=== PATIENT | female | born 1990 | race Caucasian/White ===

== ENCOUNTER 2017-02-27 21:30 | Observation (INO) | payer MEDICAID, SELFPAY ==
[~2017-02-27] VITALS: Ht 160 cm; Wt 117.9 kg
[~2017-02-27 21:30] MED LIST: FUROSEMIDE 20 MG/2 ML VIAL IVP SCH
[2017-02-27] MEDS ORDERED: LACTATED RINGERS 1,000 ML IV SCH (22:00)
[2017-02-27] MEDS ORDERED: AMPICILLIN 2,000 MG in NACL 0.9% 100 ML IV SCH (22:00)
[2017-02-27] MEDS ORDERED: ACETAMINOPHEN 325 MG TAB PO PRN (22:00)
[2017-02-27] MEDS ORDERED: ACETAMINOPHEN 325 MG TAB ONE (22:15)
[2017-02-27] MEDS ORDERED: AMPICILLIN 2,000 MG VIAL ONE (22:27)
[2017-02-27] MEDS ORDERED: LACTATED RINGERS 1,000 ML IV ONE (23:20)
[2017-02-28] MEDS ORDERED: AMPICILLIN 2,000 MG in NACL 0.9% 100 ML IV SCH ×2
[2017-02-28] MEDS ORDERED: guaiFENesin 20 MG/ML UDC PO PRN ×2 (00:45→05:20)
[2017-02-28 00:57] VITALS: BP 119/69
[2017-02-28] MEDS ORDERED: LACTATED RINGERS 1,000 ML IV SCH (01:00)
[2017-02-28] MEDS ORDERED: AMPICILLIN 1,000 MG VIAL ONE ×2 (02:07→10:06)
[2017-02-28] MEDS ORDERED: AMPICILLIN 2,000 MG VIAL ONE ×2 (05:59→14:00)
--- NOTE | 2017-02-28 08:58 | NUR ---
PATIENT HAS BEEN SCREENED AND CATEGORIZED LOW NUTRITION RISK. PATIENT WILL BE SEEN WITHIN 7 DAYS OF ADMISSION. 03/06/2017 MARGUERITE CUELLO MBA, RD
== END 2017-02-28 15:32 | disposition home or self-care (01) ==
LOC: MLD 21:30 → MFCC 02-28 08:07
PROVIDERS: ADMIT Obstetrics & Gynecology; ATTEND Obstetrics & Gynecology
DX: O26.892 Other specified pregnancy related conditions, second trimester (principal); R50.9 Fever, unspecified; R10.9 Unspecified abdominal pain; Z3A.23 23 weeks gestation of pregnancy
CPT/HCPCS: 96361; 96365; 96366; G0378; J0290; J7120

== ENCOUNTER 2018-06-08 18:39 | Emergency (ER) | payer MEDICAID ==
[~2018-06-08] VITALS: Ht 157.5 cm; Wt 118.8 kg
[2018-06-08 18:48] VITALS: BP 134/73
--- NOTE | 2018-06-08 18:51 | NUR ---
PT PORVIDED URINE, AMB TO LOBBY ALONE; NOT IN DISTRESS
--- NOTE | 2018-06-08 19:03 | NUR ---
PT AMBULATED TO ER BED 04. UNABLE TO PROVIDE A URINE AT THIS TIME.
--- NOTE | 2018-06-08 19:15 | NUR ---
BIB SELF WITH C/O OF WORSENING RIGHT KNEE PAIN X 1 WEEK S/P SLIP AND FALL. SWELLING AND REDNESS NOTED. NO OTHER SYMPTOMS REPORTED AT THIS TIME.
[2018-06-08] MEDS ORDERED: KETOROLAC 30 MG/ML VIAL IM ONE (19:55)
[2018-06-08 20:17] VITALS: BP 134/73
--- NOTE | 2018-06-08 20:17 | NUR ---
Patient discharged with v/s stable. Written and verbal after care instructions given and explained. Patient alert, oriented and verbalized understanding of instructions. Ambulatory with crutches . All questions addressed prior to discharge. ID band removed. Patient advised to follow up with PMD. Rx of Naprosyn given. Patient educated on indication of medication including possible reaction and side effects. Opportunity to ask questions provided and answered.
== END 2018-06-08 20:17 | disposition home or self-care (01) ==
LOC: MED 18:39
DX: S83.91XA Sprain of unspecified site of right knee, initial encounter (principal); W23.0XXA Caught, crushed, jammed, or pinched between moving objects, initial encounter; Y93.89 Activity, other specified; Y92.89 Other specified places as the place of occurrence of the external cause; Y99.8 Other external cause status
CPT/HCPCS: 73562; 96372; 99283; J1885; Q0092

== ENCOUNTER 2019-04-30 18:19 | Emergency (ER) | payer MEDICAID ==
[~2019-04-30] VITALS: Ht 157.5 cm; Wt 112.0 kg
[2019-04-30 18:33] VITALS: BP 157/85
--- NOTE | 2019-04-30 18:36 | NUR ---
WAIT AT LOBBY HANDED ON URINE CUP
--- NOTE | 2019-04-30 19:30 | NUR ---
PT AMBULATED TO BED 03
--- NOTE | 2019-04-30 20:55 | NUR ---
29 YEAR OLD FEMALE COMPLAINS OF VAGINAL BLEEDING X 3 WEEKS. PATIENT STATES PAIN WOULD BE ON/OFF 6/10 CRAMPING SENSATION. PATIENT STATES CHANGES 1 PAD EACH DAY. PATIENT AOX4, BREATHING EVEN AND UNLABORED, SKIN WARM AND DRY. BED IN LOWEST POSITION, LOCKED, BED RAIL UPX1. PMH - DENIES ALLERGIES - NKA
[2019-04-30 21:17] LABS: BASOPHILS # (AUTO) 0.1 K/uL (0.00-0.22); BASOPHILS % (AUTO) 0.6 % (0.0-2.0); EOSINOPHILS # (AUTO) 0.2 K/uL (0-0.4); EOSINOPHILS % (AUTO) 1.7 % (0.0-4.0); HEMATOCRIT 35.5 % (36-48); HEMOGLOBIN 10.9 g/dL (12.0-16.0); LYMPHOCYTES % (AUTO) 29.4 % (20.5-51.1); MEAN CORPUSCULAR HEMOGLOBIN 22 pg (27-31); MEAN CORPUSCULAR HGB CONC 31 g/dL (33-37); MEAN CORPUSCULAR VOLUME 70.1 fL (80-94); MONOCYTES # (AUTO) 0.6 K/uL (0.8-1.0); MONOCYTES % (AUTO) 4.4 % (1.7-9.3); NEUTROPHILS # (AUTO) 8.8 K/uL (1.8-7.7); NEUTROPHILS % (AUTO) 63.9 % (42.2-75.2); PLATELET COUNT (AUTO) 299 K/uL (140-450); RED BLOOD CELL COUNT(AUTO) 5.06 MIL/uL (4.20-5.40); RED CELL DISTRIBUTION WIDTH 15.5 % (11.6-13.7); WHITE BLOOD COUNT (AUTO) 13.8 K/uL (4.8-10.8)
[2019-04-30 22:06] VITALS: BP 138/77
--- NOTE | 2019-04-30 22:06 | NUR ---
Patient discharged with v/s stable. Pt states pain relief at this time. Written and verbal after care instructions given and explained. Patient verbalized understanding. Ambulatory with steady gait. All questions addressed prior to discharge. Advised to follow up with PMD.
--- NOTE | 2019-04-30 22:11 | NUR ---
Cedric collins in [facility] - 05/01/19 at 0318 by MEDJJ PATIENT ALERT AND AWAKE, BREATHING EVEN AND UNLABORED.
== END 2019-04-30 22:06 | disposition home or self-care (01) ==
LOC: MED 18:19
DX: N93.9 Abnormal uterine and vaginal bleeding, unspecified (principal)
CPT/HCPCS: 36415; 81002; 81025; 85025; 99283

== ENCOUNTER 2020-03-31 18:10 | Emergency (ER) | payer MEDICAID ==
[~2020-03-31] VITALS: Ht 157.5 cm; Wt 122.5 kg
[2020-03-31 18:17] VITALS: BP 126/73
--- NOTE | 2020-03-31 18:24 | NUR ---
Patient ambulated to bed 7. RN evaluating patient at bedside.
--- NOTE | 2020-03-31 19:13 | NUR ---
hand-off report givento Milton RN for continuation of nursing care
--- NOTE | 2020-03-31 19:14 | NUR ---
RECEIVED TRANSFER OF CARE REPORT FROM GALO HOLT FOR CONTINUATION OF CARE.
--- NOTE | 2020-03-31 19:30 | NUR ---
30 YR OLD FEMALE PRESENTED TO THE ER WITH CHIEF COMPLAINT OF EPIGASTRIC PAIN. PATIENT STATES SUDDEN ONSET, NON-RADIATING 7/10 EPIGASTRIC PAIN. PATIENT EPIGASTRIC PAIN STARTED 1AM THIS MORNING. PATIENT STATES NO OTHER MEDICAL COMPLAINTS. BED LOCKED IN LOWEST POSITION WITH 1 SIDE RAIL UP AND CALL LIGHT WITHIN REACH. WILL CONTINUE TO MONITOR. HISTORY- NONE ALLERGIES- NONE
--- NOTE | 2020-03-31 19:38 | NUR ---
PATIENT TAKEN TO RADIOLOGY VIA WHEELCHAIR.
[2020-03-31] MEDS: PANTOPRAZOLE 40 MG TABEC PO ONE (20:03)
[2020-03-31] MEDS: DICYCLOMINE HCL LIQUID 10 MG/5 ML UDC PO ONE (20:04)
[2020-03-31] MEDS: LIDOCAINE VISCOUS 2% 20 ML UDC PO ONE (20:04)
[2020-03-31] MEDS: ALUMINUM HYD/MAG/SIMETHICONE 30 ML UDC PO ONE (20:04)
[2020-03-31 20:43] VITALS: BP 128/71
--- NOTE | 2020-03-31 20:43 | NUR ---
Patient discharged with v/s stable. Written and verbal after care instructions given and explained. Patient alert, oriented and verbalized understanding of instructions. Ambulatory with steady gait. All questions addressed prior to discharge. ID band removed. Patient advised to follow up with PMD. Rx of PROTONIX AND MAALOX given. Patient educated on indication of medication including possible reaction and side effects. Opportunity to ask questions provided and answered.
== END 2020-03-31 20:43 | disposition home or self-care (01) ==
LOC: MED 18:10
DX: K21.9 Gastro-esophageal reflux disease without esophagitis (principal)
CPT/HCPCS: 74018; 99283; 99284